=== PATIENT | female | born 1980 | race Caucasian/White ===

== ENCOUNTER 2018-04-08 13:20 | Day surgery (SDC) | payer OTHER ==
[~2018-04-08] VITALS: Ht 180.3 cm; Wt 62.7 kg
[2018-04-08] MEDS ORDERED: LACTATED RINGERS 1,000 ML IV SCH (13:58)
[2018-04-08] MEDS ORDERED: NONE PER PT (13:58)
[2018-04-08] MEDS ORDERED: MISOPROSTOL 200 MCG TABLET ONE (14:05)
[2018-04-08] MEDS ORDERED: OXYTOCIN 10 UNITS/ML, 1ML ONE (14:05)
[2018-04-08] MEDS ORDERED: SILVER NITRATE STICK TP ONE (14:06)
[2018-04-08] MEDS ORDERED: METHYLERGONOVINE 0.2 MG/ML IM ONE (14:06)
[2018-04-08 14:08] VITALS: BP 114/76
[2018-04-08 14:17] LABS: BASOPHILS # (AUTO) 0.05 x10^3/uL (0-0.1); BASOPHILS % (AUTO) 1 % (0-1); EOSINOPHILS # (AUTO) 0.14 x10^3/uL (0-0.4); EOSINOPHILS % (AUTO) 2 % (1-7); LYMPHOCYTES # (AUTO) 1.77 x10^3/uL (1-3.4); LYMPHOCYTES % (AUTO) 25 % (22-44); MD NO; MEAN CORPUSCULAR HEMOGLOBIN 32.6 pg (27.0-34.8); MEAN CORPUSCULAR HGB CONC 33.6 g/dL (32.4-35.8); MEAN CORPUSCULAR VOLUME 96.8 fL (80-100); MEAN PLATELET VOLUME 7.3 fL (7.4-10.4); MONOCYTES # (AUTO) 0.55 x10^3/uL (0.2-0.8); MONOCYTES % (AUTO) 8 % (2-9); NEUTROPHILS # (AUTO) 4.58 x10^3/uL (1.8-6.8); NEUTROPHILS % (AUTO) 65 % (42-75); PLATELET COUNT 230 x10^3/uL (130-400); RED BLOOD COUNT 3.85 x10^6/uL (3.82-5.3); RED CELL DISTRIBUTION WIDTH 13.4 % (9.6-15.2)
[2018-04-08 14:24] LABS: MICROSCOPIC NOT IND
[2018-04-08 14:32] LABS: CULTURE INDICATED? NO
[2018-04-08] MEDS ORDERED: MIDAZOLAM 1 MG/ML, 2ML ONE (15:26)
[2018-04-08] MEDS ORDERED: FENTANYL PF 100 MCG/2ML ONE ×2 (15:26→16:24)
[2018-04-08] MEDS ORDERED: HYDROmorphone 2 MG/ML, 1ML IVPush PRN (15:30)
[2018-04-08] MEDS ORDERED: ONDANSETRON 2MG/ML, 2ML ONE (15:30)
[2018-04-08] MEDS ORDERED: KETOROLAC 30 MG/1 ML ONE (15:30)
[2018-04-08] MEDS ORDERED: LORazepam 2 MG/ML, 1ML IVPush PRN (15:30)
[2018-04-08] MEDS ORDERED: METOCLOPRAMIDE 5 MG/ML, 2ML IV PRN (15:30)
[2018-04-08] MEDS ORDERED: ACETAMINOPHEN 325 MG TABLET PO PRN (15:30)
[2018-04-08] MEDS ORDERED: OXYcodone 5 MG/5 ML ORAL.SOL UDC PO PRN (15:30)
[2018-04-08] MEDS ORDERED: MEPERIDINE/PF 25MG/0.5ML IVPush PRN (15:30)
[2018-04-08] MEDS ORDERED: PROPOFOL 10 MG/ML, 20ML ONE (15:30)
[2018-04-08] MEDS ORDERED: ACETAMINOPHEN 650 MG/20.3 ML UDC ONE (16:24)
[2018-04-08] MEDS ORDERED: OXYcodone 5 MG/5 ML ORAL.SOL UDC ONE (16:25)
[2018-04-08] MEDS ORDERED: RHOGAM FROM BLOOD BANK 1 NOTE EA IM/IV ONE (16:30)
[2018-04-08] MEDS: FENTANYL PF 100 MCG/2ML IV PRN ×2 (16:31→16:38)
== END 2018-04-08 18:19 | disposition home or self-care (01) ==
LOC: OR 13:20 → 4NOR 17:51 → OR 18:19
PROVIDERS: ATTEND Obstetrics & Gynecology Maternal & Fetal Medicine
DX: O02.1 Missed abortion (principal); Z3A.09 9 weeks gestation of pregnancy; Z98.890 Other specified postprocedural states
CPT/HCPCS: 36415; 59820; 81003; 85025; 86850; 86900; 88305; J1885; J2250; J2405; J2704; J2790; J3010; G0378; J2210; J2590